=== PATIENT | male | born 1950 | race Two or more races ===

== ENCOUNTER 2021-05-20 12:24 | Emergency (ER) | payer OTHER ==
[~2021-05-20] VITALS: Ht 167.6 cm; Wt 47.6 kg
[2021-05-20 12:27] VITALS: BP 121/78
[2021-05-20] MEDS ORDERED: ONDA-144 PO (14:33)
[2021-05-20] MEDS ORDERED: PERCOT PO (14:33)
== END 2021-05-20 15:15 | disposition home or self-care (01) ==
LOC: ER 12:24
DX: S16.1XXA Strain of muscle, fascia and tendon at neck level, initial encounter (principal); V89.2XXA Person injured in unspecified motor-vehicle accident, traffic, initial encounter; Y93.89 Activity, other specified; Y92.89 Other specified places as the place of occurrence of the external cause; Y99.8 Other external cause status
CPT/HCPCS: 70450; 74176